=== PATIENT | male | born 1935 | race Caucasian/White ===

== ENCOUNTER 2018-12-13 16:44 | Inpatient (IN) | payer MEDICAID, MEDICARE ==
[~2018-12-13] VITALS: Ht 167.6 cm; Wt 81.6 kg
[~2018-12-13 16:44] MED LIST: ALPR-340 PO; ATOR10TA69 PO; BENA20TA10 PO; CHOL500010 PO; FOLI-43 PO; GLIP5TAB12 PO; LEVO75TA7 PO; MEMA10TA2 PO; OMEP20CA10 PO; TRAZ-212 PO; VALP250C3 PO
[2018-12-13] MEDS ORDERED: SODIUM CHLORIDE 0.9% 1,000 ML IV ONE (17:52)
[2018-12-13 18:50] LABS: BASOPHILS % 0.6 % (0.0-2.0); EOSINOPHILS % 5.1 % (0.0-5.0); HEMATOCRIT. 38.9 % (42.0-52.0); HEMOGLOBIN. 12.9 g/dL (14.0-18.0); LYMPHOCYTES % 20.6 % (20.0-50.0); MEAN CORPUSCULAR HEMOGLOBIN 31.2 pg (28.0-32.0); MEAN CORPUSCULAR VOLUME 94.2 fL (80.0-94.0); MEAN PLATELET VOLUME 9.4 fl (7.4-10.4); NEUTROPHILS % 66.7 % (40.0-76.0); PLATELET 230 x1000/uL (130-400); RED BLOOD CELL COUNT 4.13 mill/uL (4.7-6.1)
[2018-12-13 18:54] LABS: CHLORIDE 106 mEq/L (98-107)
[2018-12-13 18:56] LABS: INR 1.1; PARTIAL THROMBOPLASTIN TIME 24.2 sec (23.4-31.0); PROTHROMBIN TIME 11.5 sec (9.1-11.1)
[2018-12-13] MEDS ORDERED: LORAZEPAM 2MG/ML CPJ IV ONE (20:45)
[2018-12-13] MEDS ORDERED: SODIUM CHLORIDE 0.9% 1,000 ML IV SCH (21:58)
[2018-12-13] MEDS ORDERED: ACETAMINOPHEN 325MG TABLET PO PRN (22:00)
[2018-12-13] MEDS ORDERED: DIPHENHYDRAMINE 50MG/ML VIAL IV PRN (22:00)
[2018-12-13] MEDS ORDERED: GUAIFENESIN 200MG/10ML SUGAR FREE UDC PO PRN (22:00)
[2018-12-13] MEDS ORDERED: ONDANSETRON HCL 4MG/2ML INJ IV PRN (22:00)
[2018-12-13] MEDS ORDERED: CLONIDINE 0.1MG TABLET PO PRN (22:00)
[2018-12-13] MEDS ORDERED: DEXTROSE 50% WATER 50ML SYRINGE IV PRN (22:00)
[2018-12-13] MEDS ORDERED: MAGNESIUM/ALUMINUM HYDROXIDE/SIMETHICONE 30ML UDC PO PRN (22:00)
[2018-12-13] MEDS ORDERED: DOCUSATE SODIUM 100MG CAPSULE PO PRN (22:00)
[2018-12-13] MEDS: ALPRAZOLAM 0.5 MG TABLET PO PRN (23:45)
[2018-12-13] MEDS: TRAZODONE HCL 50MG TABLET PO SCH (23:45)
[2018-12-14 05:18] LABS: BASOPHILS % 0.7 % (0.0-2.0); EOSINOPHILS % 1.7 % (0.0-5.0); HEMATOCRIT. 34.7 % (42.0-52.0); HEMOGLOBIN. 11.8 g/dL (14.0-18.0); LYMPHOCYTES % 22.9 % (20.0-50.0); MEAN CORPUSCULAR VOLUME 91.5 fL (80.0-94.0); MEAN PLATELET VOLUME 9.5 fl (7.4-10.4); MONOCYTES % 6.6 % (2.0-8.0); NEUTROPHILS % 68.1 % (40.0-76.0); PLATELET 215 x1000/uL (130-400); RED CELL DISTRIBUTION WIDTH 13.7 % (11.6-14.6)
[2018-12-14 08:56] VITALS: BP 112/71
[2018-12-14] MEDS ORDERED: SODIUM CHLORIDE 0.9% 1,000 ML IV SCH (10:00)
[2018-12-14 10:17] LABS: T4 FREE 1.11 ng/dL (0.76-1.46)
[2018-12-14] MEDS: ENOXAPARIN 40MG/0.4ML SYR SUBCUT SCH (10:44)
[2018-12-14] MEDS: BENAZEPRIL 10MG TABLET PO SCH (10:45)
[2018-12-14] MEDS: BLOOD SUGAR DIAGNOSTIC STRIP TEST SCH ×3 (11:45→21:00)
[2018-12-14 12:00] VITALS: BP 185/76
[2018-12-14] MEDS: MEMANTINE HCL 5MG TABLET PO SCH ×2 (12:59→21:03)
[2018-12-14] MEDS: INSULIN LISPRO 100 UNITS/ML SUBCUT SCH ×3 (13:03→21:00)
[2018-12-14] MEDS: VALPROIC ACID 250MG CAPSULE PO SCH ×2 (14:10→21:03)
[2018-12-14 15:12] LABS: CREATINE KINASE MB FRACTION 3.6 ng/mL (0.5-3.6)
[2018-12-14 16:00] VITALS: BP 152/83
[2018-12-14] MEDS: LEVOTHYROXINE SODIUM 75MCG TABLET PO SCH (17:21)
[2018-12-14 20:00] VITALS: BP 163/87
[2018-12-14] MEDS: ATORVASTATIN CALCIUM 10MG TABLET PO SCH (21:03)
[2018-12-14] MEDS: ALPRAZOLAM 0.5 MG TABLET PO PRN (22:11)
[2018-12-15] VITALS (7 sets, daily range): BP systolic 147–185; BP diastolic 68–90
[2018-12-15] MEDS: VALPROIC ACID 250MG CAPSULE PO SCH ×4 (06:00→21:52)
[2018-12-15] MEDS: INSULIN LISPRO 100 UNITS/ML SUBCUT SCH ×4 (06:05→20:46)
[2018-12-15] MEDS: BLOOD SUGAR DIAGNOSTIC STRIP TEST SCH ×4 (06:05→20:46)
[2018-12-15] MEDS: LEVOTHYROXINE SODIUM 75MCG TABLET PO SCH ×2 (06:05→06:09)
[2018-12-15] MEDS: ENOXAPARIN 40MG/0.4ML SYR SUBCUT SCH (09:00)
[2018-12-15] MEDS: BENAZEPRIL 10MG TABLET PO SCH (09:00)
[2018-12-15 09:13] LABS: CREATINE KINASE MB FRACTION 2.4 ng/mL (0.5-3.6)
[2018-12-15] MEDS ORDERED: LIDOCAINE HCL 1% 20ML VIAL (Pyxis) INJ ONE ×2 (10:00→12:49)
[2018-12-15] MEDS ORDERED: ATROPINE SULFATE 1MG/10ML SYR IV NR ×2 (10:30→18:15)
[2018-12-15] MEDS ORDERED: IOHEXOL-300 100 ML BOTTLE ONE (12:48)
[2018-12-15] MEDS ORDERED: GENTAMICIN/NS IRRIGATION 500 ML IR ONE (12:49)
[2018-12-15] MEDS ORDERED: IODIXANOL 320MG/ML 100 ML BOTTLE IV ONE (13:09)
[2018-12-15] MEDS ORDERED: VANCOMYCIN 1 G PREMIX 200 ML IV SCH ×2 (13:15)
[2018-12-15] MEDS ORDERED: HYDRALAZINE 20MG/ML VIAL IV PRN (21:45)
[2018-12-15] MEDS ORDERED: DEXT 5%/0.45% NACL 1000ML 1,000 ML IV SCH (21:45)
[2018-12-15] MEDS: ATORVASTATIN CALCIUM 10MG TABLET PO SCH (21:52)
[2018-12-15] MEDS: TRAZODONE HCL 50MG TABLET PO SCH (21:52)
[2018-12-16] VITALS (7 sets, daily range): BP systolic 134–162; BP diastolic 56–89
[2018-12-16] MEDS: DEXT 5%/0.45% NACL 1000ML 1,000 ML IV SCH ×2 (00:46→20:51)
[2018-12-16] MEDS: VALPROIC ACID 250MG CAPSULE PO SCH ×3 (06:00→20:51)
[2018-12-16] MEDS: INSULIN LISPRO 100 UNITS/ML SUBCUT SCH ×4 (06:16→20:51)
[2018-12-16] MEDS: LEVOTHYROXINE SODIUM 75MCG TABLET PO SCH (06:16)
[2018-12-16] MEDS: BLOOD SUGAR DIAGNOSTIC STRIP TEST SCH ×4 (06:16→20:51)
[2018-12-16 07:43] LABS: BASOPHILS % 0.5 % (0.0-2.0); EOSINOPHILS % 5.2 % (0.0-5.0); HEMATOCRIT. 36.9 % (42.0-52.0); HEMOGLOBIN. 12.2 g/dL (14.0-18.0); MEAN CORPUSCULAR HEMOGLOBIN 30.8 pg (28.0-32.0); MEAN CORPUSCULAR VOLUME 93.2 fL (80.0-94.0); MEAN PLATELET VOLUME 9.5 fl (7.4-10.4); MONOCYTES % 6.8 % (2.0-8.0); NEUTROPHILS % 65.5 % (40.0-76.0); PLATELET 195 x1000/uL (130-400); RED BLOOD CELL COUNT 3.96 mill/uL (4.7-6.1); RED CELL DISTRIBUTION WIDTH 14.2 % (11.6-14.6)
[2018-12-16] MEDS ORDERED: VANCOMYCIN 1 G PREMIX 200 ML IV SCH (08:15)
[2018-12-16] MEDS ORDERED: CEFAZOLIN 1000MG PREMIX 50 ML IV ONE (08:17)
[2018-12-16] MEDS ORDERED: GENTAMICIN SULF 40MG/ML 2ML VIAL ONE (08:34)
[2018-12-16] MEDS ORDERED: LIDOCAINE HCL 1% 20ML VIAL (Pyxis) INJ ONE (08:34)
[2018-12-16] MEDS ORDERED: IOHEXOL-300 100 ML BOTTLE ONE (08:34)
[2018-12-16] MEDS ORDERED: GENTAMICIN/NS IRRIGATION 500 ML IR ONE (08:52)
[2018-12-16] MEDS: BENAZEPRIL 10MG TABLET PO SCH (09:00)
[2018-12-16] MEDS: ENOXAPARIN 40MG/0.4ML SYR SUBCUT SCH (09:00)
[2018-12-16] MEDS ORDERED: MIDAZOLAM HCL 2 MG/2 ML VIAL ONE (09:23)
[2018-12-16] MEDS ORDERED: FENTANYL CITRATE/PF 50MCG/ML 2ML VIAL ONE (09:25)
[2018-12-16] MEDS ORDERED: HYDROCODONE/ACETAMINOPHEN 5/325MG TABLET PO PRN (11:30)
[2018-12-16] MEDS: ATORVASTATIN CALCIUM 10MG TABLET PO SCH (20:51)
[2018-12-16] MEDS: TRAZODONE HCL 50MG TABLET PO SCH (20:51)
[2018-12-16] MEDS: VANCOMYCIN 500 MG PREMIX 100 ML IV SCH (21:43)
[2018-12-17] VITALS (12 sets, daily range): BP systolic 94–161; BP diastolic 53–88
[2018-12-17] MEDS: ALPRAZOLAM 0.5 MG TABLET PO PRN (00:35)
[2018-12-17] MEDS: VALPROIC ACID 250MG CAPSULE PO SCH ×3 (06:00→20:08)
[2018-12-17] MEDS: LEVOTHYROXINE SODIUM 75MCG TABLET PO SCH (06:15)
[2018-12-17] MEDS: INSULIN LISPRO 100 UNITS/ML SUBCUT SCH ×4 (06:15→22:15)
[2018-12-17] MEDS: BLOOD SUGAR DIAGNOSTIC STRIP TEST SCH ×4 (06:15→21:00)
[2018-12-17] MEDS: VANCOMYCIN 500 MG PREMIX 100 ML IV SCH (08:33)
[2018-12-17] MEDS: BENAZEPRIL 10MG TABLET PO SCH (08:33)
[2018-12-17] MEDS: ENOXAPARIN 40MG/0.4ML SYR SUBCUT SCH (08:34)
[2018-12-17 09:35] LABS: BASOPHILS % 0.4 % (0.0-2.0); EOSINOPHILS % 5.9 % (0.0-5.0); HEMATOCRIT. 34.6 % (42.0-52.0); HEMOGLOBIN. 11.5 g/dL (14.0-18.0); MEAN CORPUSCULAR HEMOGLOBIN 30.7 pg (28.0-32.0); MEAN CORPUSCULAR VOLUME 92.2 fL (80.0-94.0); MEAN PLATELET VOLUME 9.6 fl (7.4-10.4); MONOCYTES % 9.3 % (2.0-8.0); NEUTROPHILS % 62.4 % (40.0-76.0); PLATELET 191 x1000/uL (130-400); RED BLOOD CELL COUNT 3.75 mill/uL (4.7-6.1); RED CELL DISTRIBUTION WIDTH 13.5 % (11.6-14.6)
[2018-12-17] MEDS: DEXT 5%/0.45% NACL 1000ML 1,000 ML IV SCH (16:00)
[2018-12-17] MEDS: TRAZODONE HCL 50MG TABLET PO SCH (20:08)
[2018-12-17] MEDS: ATORVASTATIN CALCIUM 10MG TABLET PO SCH (20:08)
[2018-12-18] VITALS (12 sets, daily range): BP systolic 106–148; BP diastolic 54–79
[2018-12-18] MEDS: VALPROIC ACID 250MG CAPSULE PO SCH ×3 (05:58→21:11)
[2018-12-18] MEDS: LEVOTHYROXINE SODIUM 75MCG TABLET PO SCH (05:58)
[2018-12-18] MEDS: INSULIN LISPRO 100 UNITS/ML SUBCUT SCH ×4 (06:55→21:00)
[2018-12-18] MEDS: BLOOD SUGAR DIAGNOSTIC STRIP TEST SCH ×4 (06:55→21:02)
[2018-12-18] MEDS: BENAZEPRIL 10MG TABLET PO SCH (08:36)
[2018-12-18] MEDS: ENOXAPARIN 40MG/0.4ML SYR SUBCUT SCH (08:37)
[2018-12-18] MEDS: DEXT 5%/0.45% NACL 1000ML 1,000 ML IV SCH (11:36)
[2018-12-18] MEDS: TRAZODONE HCL 50MG TABLET PO SCH (21:11)
[2018-12-18] MEDS: ATORVASTATIN CALCIUM 10MG TABLET PO SCH (21:11)
[2018-12-19] VITALS (13 sets, daily range): BP systolic 114–155; BP diastolic 59–92
[2018-12-19] MEDS: VALPROIC ACID 250MG CAPSULE PO SCH ×3 (06:19→22:16)
[2018-12-19] MEDS: BLOOD SUGAR DIAGNOSTIC STRIP TEST SCH ×4 (06:19→21:21)
[2018-12-19] MEDS: LEVOTHYROXINE SODIUM 75MCG TABLET PO SCH (06:19)
[2018-12-19] MEDS: INSULIN LISPRO 100 UNITS/ML SUBCUT SCH ×4 (06:20→21:00)
[2018-12-19] MEDS: ENOXAPARIN 40MG/0.4ML SYR SUBCUT SCH (09:04)
[2018-12-19] MEDS: DEXT 5%/0.45% NACL 1000ML 1,000 ML IV SCH (09:04)
[2018-12-19] MEDS: BENAZEPRIL 10MG TABLET PO SCH (09:08)
[2018-12-19] MEDS: TRAZODONE HCL 50MG TABLET PO SCH (21:19)
[2018-12-19] MEDS: ATORVASTATIN CALCIUM 10MG TABLET PO SCH (21:19)
== END 2018-12-19 22:49 | disposition home or self-care (01) | DRG 243 ==
LOC: ER 16:44 → 5WST 20:10 → EDBEDREQ 20:32 → EDBEDREQTM 20:32 → ENRESERV 12-14 07:11 → 5WST 12-14 21:39 → 3WST 12-16 13:32
PROVIDERS: ADMIT Internal Medicine; ATTEND Internal Medicine
PROC: 0JH606Z Insertion of Pacemaker, Dual Chamber into Chest Subcutaneous Tissue and Fascia, Open Approach (ICD-10-PCS; principal; 2018-12-13)
PROC: 02HK3JZ Insertion of Pacemaker Lead into Right Ventricle, Percutaneous Approach (ICD-10-PCS; 2018-12-13)
PROC: 02H63JZ Insertion of Pacemaker Lead into Right Atrium, Percutaneous Approach (ICD-10-PCS; 2018-12-13)
PROC: B54MZZA Ultrasonography of Right Upper Extremity Veins, Guidance (ICD-10-PCS; 2018-12-15)
PROC: 05HY33Z Insertion of Infusion Device into Upper Vein, Percutaneous Approach (ICD-10-PCS; 2018-12-15)
PROC: B54NZZA Ultrasonography of Left Upper Extremity Veins, Guidance (ICD-10-PCS; 2018-12-15)
PROC: 05HY33Z Insertion of Infusion Device into Upper Vein, Percutaneous Approach (ICD-10-PCS; 2018-12-15)
DX: I44.1 Atrioventricular block, second degree (principal); G93.40 Encephalopathy, unspecified; F03.90 Unspecified dementia, unspecified severity, without behavioral disturbance, psychotic disturbance, mood disturbance, and anxiety; E03.9 Hypothyroidism, unspecified; E11.9 Type 2 diabetes mellitus without complications; I25.10 Atherosclerotic heart disease of native coronary artery without angina pectoris; R62.7 Adult failure to thrive; I10 Essential (primary) hypertension; G90.8 Other disorders of autonomic nervous system; Z90.49 Acquired absence of other specified parts of digestive tract; Z88.0 Allergy status to penicillin; Z79.899 Other long term (current) drug therapy; Z68.29 Body mass index [BMI] 29.0-29.9, adult
CPT/HCPCS: 33208; 36415; 36569; 71045; 76937; 80048; 80061; 82550; 82553; 82962; 83036; 83880; 84439; 84443; 84484; 85379; 93005; 93306; 93880; 93970; 96361; 96374; 96375; 99285; A4565; C1725; C1785; C1892; C1893; C1898; J0360; J0461; J0690; J1200; J1580; J1650; J1815; J2060; J2250; J3010; J3370; J3490; J7030; J7040; J7050; Q9967; A4315